=== PATIENT | male | born 2000 | race African-American/Black ===

== ENCOUNTER 2021-04-19 16:25 | Emergency (ER) | payer OTHER ==
[2021-04-19 16:43] VITALS: BP 140/65; PULSE 60; RESP 20; TEMP 98
--- NOTE | 2021-04-19 17:15 | ED ---
Recheck HPI - General Chief Complaint: Recheck/Abnormal Lab/Rx Stated Complaint: COVID TEST Time Seen by Provider: 04/19/21 16:43 Source: patient Mode of arrival: ambulatory Limitations: no limitations - History of Present Illness Initial Comments: 20-year-old male presents to the emergency department for Covid testing. Needs this for international travel. Has no other complaints. - Related Data Allergies Allergy/AdvReac Type Severity Reaction Status Date / Time No Known Allergies Allergy Verified 04/19/21 16:43 Review of Systems ROS Statement: Those systems with pertinent positive or pertinent negative responses have been documented in the HPI. ROS Other: All systems not noted in ROS Statement are negative. Past Medical History Past Medical History: No Reported History History of Any Multi-Drug Resistant Organisms: None Reported Past Surgical History: No Surgical Hx Reported Past Psychological History: No Psychological Hx Reported Smoking Status: Never smoker Past Alcohol Use History: None Reported Past Drug Use History: None Reported General Exam Limitations: no limitations General appearance: alert, in no apparent distress Head exam: Present: normal inspection Eye exam: Present: normal appearance Neck exam: Present: normal inspection Extremities exam: Present: normal inspection Back exam: Present: normal inspection Neurological exam: Present: alert, oriented X3 Psychiatric exam: Present: normal affect, normal mood Skin exam: Present: intact, normal color Course Vital Signs 04/19/21 16:40 Temperature 98 F Pulse Rate 60 Respiratory 20 Rate Blood Pressure 140/65 O2 Sat by Pulse 98 Oximetry Medical Decision Making - Medical Decision Making Negative covid-19 test - Lab Data Lab Results 04/19/21 Range/Units 16:46 Coronavirus (PCR) Not Detected (Not Detectd) Disposition Clinical Impression: Lab test negative for COVID-19 virus Disposition: HOME SELF-CARE Condition: Stable Additional Instructions: Please return to the Emergency Department if symptoms worsen or any other concerns. Is patient prescribed a controlled substance at d/c from ED?: No Referrals: Nonstaff,Physician [Primary Care Provider] - 1-2 days Time of Disposition: 17:15
== END 2021-04-19 18:59 | disposition home or self-care (01) ==
LOC: EC 16:25
DX: Z20.822 Contact with and (suspected) exposure to COVID-19 (principal)
CPT/HCPCS: 87635; 99282